=== PATIENT | female | born 1995 | race Caucasian/White ===

== ENCOUNTER 2018-09-14 11:18 | Inpatient (IN) | payer BC ==
[2018-09-14] MEDS ORDERED: Misoprostol TAB* 100 MCG VAGINAL ONE (12:50)
[2018-09-14] MEDS ORDERED: Misoprostol TAB* 100 MCG PO ONE (12:56)
--- NOTE | 2018-09-14 12:56 | PN ---
L&D Outpatient: Visit - Reproductive Information Estimated Due Date: 09/13/18 Gestational Age: 40 Weeks and 1 Days : 2 Para: 1 - Reason for Visit Visit Reason: cervical ripening - Antepartal Records Antepartal Record: Reviewed, Uncomplicated - Patient History Patient History Significant: No Review of Systems CV Complaint: No Respiratory: Shortness of Breath: No Gastrointestinal: No Nausea/Vomiting, Normal Bowel Movement Genitourinary: No Dysuria, No Bleeding, No Leaking Fluid Musculoskeletal: No Complaint, No Epigastric Pain Neurological: No Headache, No Visual Changes Movement: Normal L&D Outpatient: Exam - Cervical Exam Cervical Exam: /2 - Abdominal Exam Abdomen Exam: Fundal Height Consistent with Dates - Membranes Membrane Status: Intact - Ultrasound/Biophysical Profile Ultrasound Status: Not Done EFM Findings - External Monitor Findings Baseline Heart Rate: 135 External Monitor Findings: Accelerations Present, No Pattern of Variable or Late Decelerations, Variability Moderate, Baseline Stable Contractions: None L&D Outpatient: Asses/Plan Assessment: 23 y.o. , 40w1d EGA, cervical ripening - Discharge Diagnosis Discharge Diagnosis: Supervision-Normal Preg Plan: Other - cervical ripening
[2018-09-15] MEDS ORDERED: Dinoprostone* 10 MG VAG.SUPP VAGINAL ONE (03:58)
--- NOTE | 2018-09-15 04:04 | PN ---
Progress Note - Progress Note Date of Service: 09/15/18 SOAP: Subjective: [pt denies feeling contractions, reports occasional cramping approx. every 10 minutes. Pt reports + FM, -VB, -LOF.] Objective: [BP:113/62, 64bpm, T:98.9, R:16, FHT: 120 bpm, +accels, -decels, moderate variability, ctx q 2-10 mild to palpation cervix: 2/80/-1] Assessment: [23 y.o. , 40w2d EGA, cervical ripening] Plan: [1) counseled pt on risks versus benefits and mgmt options, pt elects to continue with cervidil placement. 2) Reevaluate PRN]
[2018-09-15] MEDS ORDERED: Lactated Ringers 1000 ML Bag* 1,000 ML IV ONE (11:59)
[2018-09-15] MEDS ORDERED: Lactated Ringers 1000 ML Bag* 1,000 ML IV SCH ×2 (12:00→15:00)
--- NOTE | 2018-09-15 12:06 | HP ---
General Information - Reason for Visit active labor - General Information Maternal Age: 23 Grav: 2 Para: 1 SAB: 0 IEA: 0 Estimated Due Date: 09/13/18 Determined By: Early Ultrasound Maternal Blood Type and Rh: A Positive - Results this Serology/RPR Result: Non-Reactive Rubella Result: Immune HBsAg Result: Negative HIV Result: Negative GBS Culture Result: Negative Past Medical History Delivery History: Hx Uncomplicated Vaginal Delivery Pertinent Past Medical History: Non-Contributory Pertinent Past Surgical History: See Records - appendectomy Pertinent Family History: See Records - aneurism - Antepartal Records Antepartal Records: Reviewed, Complicated by: - viola lying placenta ( resolved), varicose veins Review of Systems Constitutional: Uncomfortable CV Complaint: No Respiratory: Shortness of Breath: No Gastrointestinal: No Nausea/Vomiting, Normal Bowel Movement Genitourinary: No Dysuria, No Leaking Fluid, Spotting Musculoskeletal: Contractions Neurological: No Headache, No Visual Changes Movement: Normal Exam Allergies/Adverse Reactions: Allergies doxycycline Allergy (Verified 09/14/18 09:03) Hives hydromorphone [From Dilaudid] Allergy (Verified 09/14/18 11:42) Unknown Reaction Details pt states unsure of reactions was told in hospital had allergy to Penicillins Allergy (Verified 09/14/18 11:42) Unknown Reaction Details usure. pt said she has always had as a listed allergy sulfamethoxazole [From Bactrim] Allergy (Verified 09/14/18 09:03) Hives trimethoprim [From Bactrim] Allergy (Verified 09/14/18 09:03) Hives BP: 111/70, P:76, T:99.9 - Measurements Height: 5 ft 7 in Weight: 177 lb Weight in lbs: 177.229905 Body Mass Index (BMI): 27.7 Pre- Weight: 139 lb Weight Gained This : 38 lbs and 0 ozs - Exam Breast: Breast Exam Deferred CVA: No CVA Tenderness Extremities: No Edema Heart: Normal Rhythm/Heart Sounds HEENT: No Significant Findings Lungs: Clear Bilaterally Rectal: Rectal Exam Deferred Reflexes: DTR 2+ Thyroid: No Thyromegaly - Abdominal Exam Abdomen Exam: Fundal Height Consistent with Dates - Ultrasound/Biophysical Profile Ultrasound Status: Not Done Targeted Exam Findings Estimated Weight: 8lbs Cervical Exam: 4cm Effacement: 90% Station: 0 Presenting Part: Vertex Membrane Status: Intact Bleeding/Discharge: Bloody Show EFM Findings - External Monitor Findings Baseline Heart Rate: 130 External Monitor Findings: Accelerations Present, No Pattern of Variable or Late Decelerations, Variability Moderate, Baseline Stable Contractions: Regular, Moderate, 45-90 Seconds Contraction Frequency: 2-3 Assessment/Plan - Assessment 23 y.o. , active labor
[2018-09-15] MEDS ORDERED: Witch Hazel PAD* JAR TOPICAL PRN (14:53)
[2018-09-15] MEDS ORDERED: Dibucaine 1% 28.35 GM TUBE PR PRN (14:53)
[2018-09-15] MEDS ORDERED: Ibuprofen TAB* 600 MG PO PRN (14:53)
[2018-09-15] MEDS ORDERED: Acetaminophen TAB* 325 MG PO PRN (14:53)
[2018-09-15] MEDS ORDERED: Glycerin ADULT SUPP PR PRN (14:53)
[2018-09-15] MEDS ORDERED: Dibucaine 1% 28.35 GM TUBE ONE (14:55)
--- NOTE | 2018-09-15 14:55 | PROCNOTE ---
[facility] OB: Delivery Note - Delivery A Date of : 09/15/18 Time of : 14:46 Sex: Male Score 1 Minute: 9 Score 5 Minutes: 9 Gestational Age in Weeks and Days at Delivery: 40 Weeks and 2 Days Delivery Method: Spontaneous Vaginal Labor: Induced Amniotic Fluid: Clear Estimated Blood Loss: 250 Anesthesia/Analgesia: Nitrous-Labor Delivered By: Jessica Lai - Nursery Level of Nursery: Regular/Bedside - Perineum Perineal Injury: Perineal Laceration, 1st Degree Perineal Repair: By Delivering Practioner
[2018-09-15] MEDS ORDERED: Simethicone TAB* 80 MG TAB.CHEW PO SCH (17:30)
[2018-09-15] MEDS: Docusate CAP* 100 MG PO SCH (20:54)
[2018-09-16 06:53] LABS: Hematocrit 36 % (35-47); Mean Corpuscular HGB Conc 33 g/dl (31-36); Mean Corpuscular Hemoglobin 29 pg (27-31); Mean Corpuscular Volume 88 fL (80-97); Mean Platelet Volume 8.4 fL (7.4-10.4); Platelet Count 207 10^3/ul (150-450); Red Blood Count 4.13 10^6/ul (4.00-5.40); Red Cell Distribution Width 14 % (10.5-15); White Blood Count 16.3 10^3/ul (3.5-10.8)
[2018-09-16 07:29] LABS: ABS Basophils 0.1 10^3/ul (0-0.2); ABS Eosinophils 0.1 10^3/ul (0-0.6); ABS Lymphocytes 2.7 10^3/ul (1.0-4.8); ABS Monocytes 1.6 10^3/ul (0-0.8); ABS Neutrophils 11.7 10^3/ul (1.5-7.7); ABS Nucleated RBC 0 10^3/ul; Eosinophil % 0.8 %; Lymphocyte % 16.7 %; Nucleated Red Blood Cells % 0
[2018-09-16] MEDS ORDERED: Ferrous Gluconate TAB* 324 MG TAB PO SCH (09:00)
[2018-09-16 11:24] VITALS: BP 99/62
[2018-09-16] MEDS: Docusate CAP* 100 MG PO SCH (13:52)
== END 2018-09-16 17:20 | disposition home or self-care (01) | DRG 560 ==
LOC: MCHOBOUT 11:18 → MCHOB 09-15 12:03
PROVIDERS: ADMIT Midwife; ATTEND Midwife
PROC: 10E0XZZ Delivery of Products of Conception, External Approach (ICD-10-PCS; principal; 2018-09-15)
PROC: 3E033VJ Introduction of Other Hormone into Peripheral Vein, Percutaneous Approach (ICD-10-PCS; 2018-09-15)
PROC: 10907ZC Drainage of Amniotic Fluid, Therapeutic from Products of Conception, Via Natural or Artificial Opening (ICD-10-PCS; 2018-09-15)
PROC: 0HQ9XZZ Repair Perineum Skin, External Approach (ICD-10-PCS; 2018-09-15)
DX: O48.0 Post-term pregnancy (principal); Z37.0 Single live birth; O70.0 First degree perineal laceration during delivery; Z3A.40 40 weeks gestation of pregnancy
CPT/HCPCS: 36415; 85025; 87651; A9270-GY; S0191